=== PATIENT | female | born 1955 | race Caucasian/White ===

== ENCOUNTER 2017-07-09 08:05 | Inpatient (IN) | payer MEDICAID ==
[~2017-07-09] VITALS: Ht 160 cm; Wt 75.8 kg
[2017-07-09] VITALS (43 sets, daily range): BP systolic 106–146; BP diastolic 48–89
[2017-07-09] MEDS ORDERED: SODIUM CHLORIDE 0.9% 1,000 ML IV ONE (08:31)
[2017-07-09] MEDS ORDERED: INSULIN REGULAR (DRIP) 100 UNITS in SODIUM CHLORIDE 0.9% 100 ML IV ONE (08:45)
[2017-07-09] MEDS ORDERED: INSULIN REGULAR (HUMULIN R) UD 100 UNITS/ML SYR IV ONE (08:45)
[2017-07-09 09:37] LABS: BASOPHILS % 0.2 % (0.0-2.0); HEMATOCRIT. 56.2 % (36.0-48.0); HEMOGLOBIN. 17.8 g/dL (12.0-16.0); LYMPHOCYTES % 7.2 % (20.0-50.0); MEAN CORPUSCULAR HEMOGLOBIN 30.1 pg (28.0-32.0); MEAN PLATELET VOLUME 10.3 fl (7.4-10.4); MONOCYTES % 3.7 % (2.0-8.0); NEUTROPHILS % 88.9 % (40.0-76.0); PLATELET 204 x1000/uL (130-400); RED BLOOD CELL COUNT 5.92 mill/uL (4.2-5.4); RED CELL DISTRIBUTION WIDTH 13.3 % (11.6-14.6)
[2017-07-09 09:39] LABS: BG BASE EXCESS -3.7 mmol/L (-2.0-2.0); BG CARBOXYHEMOGLOBIN 0.4 % (0.5-1.5); BG DEOXYHEMOGLOBIN 5.8 % (0.0-5.0); BG FRACTION INSPIRED OXYGEN 21; BG HCO3 ACT 19.9 mmol/L (22.0-26.0); BG METHEMOGLOBIN 0.4 % (0.0-1.5); BG OXYGEN SATURATION 94.2 % (92.0-98.5); BG OXYHEMOGLOBIN 93.4 % (94.0-97.0); BG PCO2 32.8 mmHg (35.0-45.0); BG PO2 69.6 mmHg (75.0-100.0); BG SAMPLE SITE LEFT RADIAL; BG TOTAL HEMOGLOBIN 18.4 g/dL (12.0-18.0); BG VENT MODE ROOM AIR
[2017-07-09 09:39] LABS: GLUCOSE URINE 3+ (NEGATIVE); KETONES URINE 1+ (NEGATIVE); LEUKOCYTE ESTERASE URINE TRACE (NEGATIVE); NITRITE URINE NEGATIVE (NEGATIVE); OCCULT BLOOD URINE NEGATIVE (NEGATIVE); PH URINE 5.5 (4.5-8.0); PROTEIN URINE NEGATIVE (NEGATIVE); SPECIFIC GRAVITY URINE 1.034 (1.005-1.030); UROBILINOGEN URINE 0.2 E.U./dL (0.2-1.0)
[2017-07-09 09:41] LABS: CLARITY URINE SL HAZY (CLEAR); COLOR URINE PALE YELLOW (YELLOW)
[2017-07-09] MEDS ORDERED: INSULIN REGULAR (DRIP) 100 UNITS in SODIUM CHLORIDE 0.9% 99 ML IV ONE (09:45)
[2017-07-09 09:48] LABS: CARBON DIOXIDE 19 mEq/L (21-32); CHLORIDE 104 mEq/L (98-107)
[2017-07-09 09:50] LABS: PROTHROMBIN TIME 10.7 sec (9.4-11.6)
[2017-07-09 09:53] LABS: AMMONIA 25 uMol/L (<32)
[2017-07-09 09:54] LABS: ETHANOL BLOOD < 10 mg/dL; TROPONIN I < 0.02 ng/mL (0.00-0.04)
[2017-07-09 09:56] LABS: *AMPHETAMINES SCREEN URINE NEGATIVE (NEGATIVE); *BARBITURATES SCREEN URINE NEGATIVE (NEGATIVE); *BENZODIAZEPINES SCREEN URINE NEGATIVE (NEGATIVE); *COCAINE SCREEN URINE NEGATIVE (NEGATIVE); CANNABINOID URINE SCREEN NEGATIVE (NEGATIVE); METHADONE URINE SCREEN NEGATIVE (NEGATIVE); OPIATES URINE SCREEN NEGATIVE (NEGATIVE); PHENCYCLIDINE URINE SCREEN NEGATIVE (NEGATIVE)
[2017-07-09] MEDS ORDERED: INSULIN REGULAR (HUMULIN R) 300UNITS/3ML IV SCH (10:00)
[2017-07-09] MEDS ORDERED: SODIUM CHLORIDE 0.9% 1000ML BAG (SEPSIS BOLUS) IV ONE (10:15)
[2017-07-09] MEDS ORDERED: VANCOMYCIN 1 G PREMIX 200 ML IV ONE (10:15)
[2017-07-09] MEDS ORDERED: PIPERACILLIN/TAZ 3.375G PREMIX 50 ML IV ONE (10:15)
[2017-07-09] MEDS ORDERED: SODIUM CHLORIDE 0.9% 1,000 ML IV SCH ×2 (10:53)
[2017-07-09] MEDS ORDERED: ONDANSETRON HCL 4MG/2ML VIAL IV PRN (11:00)
[2017-07-09] MEDS ORDERED: INSULIN REGULAR (DRIP) 100 UNITS in SODIUM CHLORIDE 0.9% 100 ML IV SCH (11:00)
[2017-07-09] MEDS ORDERED: IPRATROPIUM/ALBUTEROL 0.5-3(2.5)MG/3ML NEB INH PRN (11:00)
[2017-07-09 11:57] LABS: PHOSPHORUS 5.4 mg/dL (2.5-4.9)
[2017-07-09 12:13] LABS: BETA HYDROXYBUTYRATE 4.4 mMol/L (0.0-0.3)
[2017-07-09] MEDS ORDERED: DEXT 5%/0.9% NACL 1,000 ML IV PRN (13:30)
[2017-07-09] MEDS ORDERED: SODIUM CHL 0.9% + KCL 20MEQ/L 1,000 ML IV PRN (13:30)
[2017-07-09] MEDS ORDERED: DEXT 5%/0.9% NACL KCL 20MEQ/L 1,000 ML IV PRN (13:30)
[2017-07-09] MEDS ORDERED: DEXTROSE 50% WATER 50ML SYRINGE IV PRN ×2 (14:15)
[2017-07-09] MEDS: BLOOD SUGAR DIAGNOSTIC STRIP TEST SCH ×10 (14:18→23:15)
[2017-07-09 14:21] LABS: CARBON DIOXIDE 22 mEq/L (21-32); CHLORIDE 122 mEq/L (98-107); CREATINE KINASE 105 IU/L (26-192); CREATINE KINASE MB FRACTION 1.9 ng/mL (0.5-3.6); TROPONIN I < 0.02 ng/mL (0.00-0.04)
[2017-07-09] MEDS: ENOXAPARIN 40MG/0.4ML SYR SUBCUT SCH (14:24)
[2017-07-09] MEDS ORDERED: INSULIN REGULAR (DRIP) 100 UNITS in SODIUM CHLORIDE 0.9% 99 ML IV SCH (15:30)
[2017-07-09] MEDS: VANCOMYCIN 750 MG PREMIX 150 ML IV SCH (16:57)
[2017-07-09 17:05] LABS: CARBON DIOXIDE 25 mEq/L (21-32); CHLORIDE 125 mEq/L (98-107)
[2017-07-09] MEDS: PIPERACILLIN/TAZ 3.375G PREMIX 50 ML IV SCH (18:13)
[2017-07-09] MEDS: DEXT 5% WATER + KCL 20MEQ/L 1,000 ML IV SCH (18:13)
[2017-07-09 20:36] LABS: CARBON DIOXIDE 26 mEq/L (21-32); CHLORIDE 124 mEq/L (98-107)
[2017-07-09 23:56] LABS: CREATINE KINASE 111 IU/L (26-192); CREATINE KINASE MB FRACTION 1.4 ng/mL (0.5-3.6); TROPONIN I < 0.02 ng/mL (0.00-0.04)
[2017-07-10] VITALS (48 sets, daily range): BP systolic 94–152; BP diastolic 20–96
[2017-07-10] MEDS: BLOOD SUGAR DIAGNOSTIC STRIP TEST SCH ×13 (00:29→23:33)
[2017-07-10] MEDS: PIPERACILLIN/TAZ 3.375G PREMIX 50 ML IV SCH ×5 (00:31→23:27)
[2017-07-10 02:00] LABS: CARBON DIOXIDE 24 mEq/L (21-32); CHLORIDE 124 mEq/L (98-107)
[2017-07-10] MEDS: VANCOMYCIN 750 MG PREMIX 150 ML IV SCH ×2 (03:32→17:19)
[2017-07-10] MEDS: DEXT 5% WATER + KCL 20MEQ/L 1,000 ML IV SCH ×2 (05:25→17:19)
[2017-07-10 06:11] LABS: BASOPHILS % 0.3 % (0.0-2.0); EOSINOPHILS % 1.6 % (0.0-5.0); HEMATOCRIT. 41.7 % (36.0-48.0); HEMOGLOBIN. 13.8 g/dL (12.0-16.0); LYMPHOCYTES % 27.1 % (20.0-50.0); MEAN CORPUSCULAR HEMOGLOBIN 29.9 pg (28.0-32.0); MEAN CORPUSCULAR VOLUME 90.5 fL (81.0-99.0); MEAN PLATELET VOLUME 10.4 fl (7.4-10.4); MONOCYTES % 4.6 % (2.0-8.0); NEUTROPHILS % 66.4 % (40.0-76.0); PLATELET 193 x1000/uL (130-400); RED BLOOD CELL COUNT 4.61 mill/uL (4.2-5.4); RED CELL DISTRIBUTION WIDTH 12.9 % (11.6-14.6)
[2017-07-10 07:51] LABS: CARBON DIOXIDE 25 mEq/L (21-32); CHLORIDE 120 mEq/L (98-107)
[2017-07-10] MEDS ORDERED: INSULIN DETEMIR UD 100 UNITS/ML SYR SUBCUT SCH (11:30)
[2017-07-10] MEDS: INSULIN LISPRO 100 UNITS/ML SUBCUT SCH ×3 (13:15→20:36)
[2017-07-10] MEDS: INSULIN DETEMIR UD 100 UNITS/ML SYR SUBCUT SCH ×2 (13:16→21:47)
[2017-07-10] MEDS: ENOXAPARIN 40MG/0.4ML SYR SUBCUT SCH (13:22)
[2017-07-11] VITALS (23 sets, daily range): BP systolic 95–138; BP diastolic 52–85
[2017-07-11] MEDS: BLOOD SUGAR DIAGNOSTIC STRIP TEST SCH ×5 (03:49→20:00)
[2017-07-11] MEDS: VANCOMYCIN 750 MG PREMIX 150 ML IV SCH (05:13)
[2017-07-11] MEDS: PIPERACILLIN/TAZ 3.375G PREMIX 50 ML IV SCH ×3 (05:15→18:10)
[2017-07-11] MEDS: INSULIN LISPRO 100 UNITS/ML SUBCUT SCH ×4 (06:46→21:09)
[2017-07-11 07:15] LABS: CHLORIDE 110 mEq/L (98-107)
[2017-07-11 07:27] LABS: CARBON DIOXIDE 24 mEq/L (21-32)
[2017-07-11] MEDS: INSULIN DETEMIR UD 100 UNITS/ML SYR SUBCUT SCH ×2 (09:25→22:54)
[2017-07-11] MEDS ORDERED: METF500T4 PO (10:48)
[2017-07-11] MEDS ORDERED: LISI2.5T47 PO (10:48)
[2017-07-11] MEDS ORDERED: ASPI-1158 PO (10:48)
[2017-07-11] MEDS ORDERED: LEVVL SUBCUT (10:48)
[2017-07-11] MEDS ORDERED: LACTULOSE 20G/30ML UDC PO PRN (11:00)
[2017-07-11] MEDS: LISINOPRIL 2.5MG TABLET PO SCH (11:32)
[2017-07-11] MEDS: ENOXAPARIN 40MG/0.4ML SYR SUBCUT SCH (18:10)
[2017-07-12] VITALS (7 sets, daily range): BP systolic 97–113; BP diastolic 62–76
[2017-07-12] MEDS: PIPERACILLIN/TAZ 3.375G PREMIX 50 ML IV SCH ×2 (00:58→06:24)
[2017-07-12] MEDS: BLOOD SUGAR DIAGNOSTIC STRIP TEST SCH ×4 (04:22→12:03)
[2017-07-12] MEDS ORDERED: VANCOMYCIN 1250MG in DEXTROSE 5% WATER 250ML IV SCH (06:00)
[2017-07-12] MEDS: INSULIN LISPRO 100 UNITS/ML SUBCUT SCH ×2 (07:19→12:24)
[2017-07-12] MEDS: LISINOPRIL 2.5MG TABLET PO SCH (10:14)
[2017-07-12] MEDS: INSULIN DETEMIR UD 100 UNITS/ML SYR SUBCUT SCH (10:29)
== END 2017-07-12 17:15 | disposition home or self-care (01) | DRG 420 ==
LOC: ER 08:33 → MICUNO 10:13 → CANRESERV 10:54 → ENRESERV 10:54 → 6EST 07-12 03:32
PROVIDERS: ADMIT Internal Medicine; ATTEND Internal Medicine
DX: E13.00 Other specified diabetes mellitus with hyperosmolarity without nonketotic hyperglycemic-hyperosmolar coma (NKHHC) (principal); R65.11 Systemic inflammatory response syndrome (SIRS) of non-infectious origin with acute organ dysfunction; E87.0 Hyperosmolality and hypernatremia; E86.0 Dehydration; N39.0 Urinary tract infection, site not specified; Z79.4 Long term (current) use of insulin; Z79.82 Long term (current) use of aspirin; Z79.84 Long term (current) use of oral hypoglycemic drugs
CPT/HCPCS: 36415; 36600; 70450; 71010; 76700; 80048; 80053; 80061; 80202; 80305; 80307; 80329; 81001; 82010; 82140; 82375; 82550; 82553; 82805; 82962; 83036; 83605; 83690; 83735; 83880; 84100; 84443; 84484; 85025; 85610; 87040; 87086; 93005; 93306; 93880; 93970; 96361; 96365; 96366; 96375; 97162; 99285; G0482; J1650; J1815; J2543; J3370; J3480; J7030; J7050; J7060